=== PATIENT | male | born 1960 | race American Indian/Alaskan Native ===

== ENCOUNTER 2017-02-08 13:29 | Emergency (ER) | payer SELFPAY ==
--- NOTE | 2017-02-08 15:01 | Emergency Department Report ---
Entered by VIRIDIANA DHALIWAL, acting as scribe for DENISE ELLIOTT NP. Chief Complaint: Extremity Injury, Lower Stated Complaint: KNEE/ANKLE PAIN Time Seen by Provider: 02/08/17 14:51 - HPI History of Present Illness: 56-year-old male is non-toxic, non ill appearing, in no acute distress with c/o bilateral legs swelling and pain for 9 years, which hasn't decreased. Patient states his legs feel heavy. Aggravated with sitting during work and walking, but mildly alleviated with laying down. He denies calf pain, injury, abdominal pain, nausea, vomiting, chest pain, and SOB. 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 Notes that his last trip was today. Patient denies Hx of heart problems. Reports he was diagnosed with poor circulation 9 years when seen by a physician for similar complaint. - ROS Review of Systems: Reports bilateral leg swelling and pain. Denies chest pain and SOB. Denies abdominal pain, nausea, and vomiting. Denies numbness and tingling - Exam Vital Signs: Vital Signs 02/08/17 14:42 Temperature 98.1 F Pulse Rate 61 Respiratory 17 Rate Blood Pressure 151/87 O2 Sat by Pulse 100 Oximetry Physical Exam: Constitutional: Non toxic appearing, NAD. Cardiovascular: Normal rate and rhythm with normal S1/S2 sounds. Respiratory: No respiratory distress. Lung sounds clear to auscultation bilaterally. Abdomen: Abdomen is non-distended, soft with no tenderness to palpation in all quadrants. Extremities: bilateral lower extremity swelling. Positive pulses. Normal ROM to extremities. No calf tenderness. Negative Angel's sign. Cool to touch. MSE screening note: Focused history and physical exam performed. Due to findings the following was ordered: CBC, BMP, pro-brain natriuretic peptide test, and UA will be ordered for patient. ED Disposition for MSE Condition: Stable This documentation as recorded by the scribe,VIRIDIANA DHALIWAL,accurately reflects the service I personally performed and the decisions made by me,DENISE ELLIOTT, [place].
[2017-02-08 15:10] LABS: Basophils % (Auto) 0.7 % (0.0-1.8); Hematocrit 39.3 % (35.5-45.6); Hemoglobin 12.9 gm/dl (11.8-15.2); Mean Corpuscular HGB Conc 33 % (32-34); Mean Corpuscular Hemoglobin 31 pg (28-32); Mean Corpuscular Volume 94 fl (84-94); Platelet Count 176 K/mm3 (140-440); Red Cell Distribution Width 12.7 % (13.2-15.2); White Blood Count 5.8 K/mm3 (4.5-11.0)
[2017-02-08 15:58] LABS: Anion Gap 19 mmol/L; BUN/Creatinine Ratio 11.11; Blood Urea Nitrogen 10 mg/dL (9-20); Calcium 8.9 mg/dL (8.4-10.2); Carbon Dioxide 24 mmol/L (22-30); Chloride 98.8 mmol/L (98-107); Glucose 88 mg/dL (75-100); Potassium 4.1 mmol/L (3.6-5.0); Sodium 138 mmol/L (137-145)
[2017-02-09] MEDS ORDERED: LASIX PO ONE (03:06)
--- NOTE | 2017-02-09 03:16 | Emergency Department Report ---
ED Extremity Problem HPI - General Chief complaint: Extremity Injury, Lower Stated complaint: KNEE/ANKLE PAIN Time Seen by Provider: 02/09/17 02:32 Source: patient Mode of arrival: Ambulatory Limitations: No Limitations - History of Present Illness Initial comments: 56 year old male with no significant past medical history presents to the hospital complaining of lower extremity edema. He has had intermittent leg edema since 2007. He went to a hospital was told he has "poor circulation". Since this time he has not seen a primary care doctor for further evaluation. 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 He states his legs feel heavy in discomfort is rated 5/10 in intensity. Denies isolated calf tenderness, chest pain, shortness of breath, or fever. Patient states that swelling improves intermittently with leg elevation. Severity scale (0 -10): 5 - Related Data Previous Rx's Medication Instructions Recorded Last Taken Type Furosemide [Lasix] 20 mg PO QDAY #7 tablet 02/09/17 Unknown Rx Potassium Chloride [K-Dur] 20 meq PO QDAY #7 tablet 02/09/17 Unknown Rx Allergies Allergy/AdvReac Type Severity Reaction Status Date / Time No Known Allergies Allergy Unverified 02/08/17 14:42 ED Review of Systems ROS: Stated complaint: KNEE/ANKLE PAIN Other details as noted in HPI Comment: All other systems reviewed and negative Other: Constitutional: No fevers chills Eyes: No eye pain visual changes ENT: No ear pain or throat pain Neck: Denies pain Respiratory: Denies cough wheezing shortness of breath Cardiovascular: Denies chest pain, palpitations, syncope GI: Denies abdominal pain, nausea, vomiting, diarrhea : Denies dysuria Musculoskeletal: Denies back pain Skin: Denies rash, lesions, erythema Neurologic: Denies headache, numbness, weakness Psychiatric: Denies suicidal ideation, hallucinations ED Past Medical Hx - Past Medical History Previous Medical History?: No - Surgical History Past Surgical History?: No - Social History Smoking Status: Smoker, Current Status Unknown Substance Use Type: Alcohol - Medications Home Medications: Home Medications Medication Instructions Recorded Confirmed Last Taken Type Furosemide [Lasix] 20 mg PO QDAY #7 tablet 02/09/17 Unknown Rx Potassium Chloride [K-Dur] 20 meq PO QDAY #7 tablet 02/09/17 Unknown Rx ED Physical Exam - General Limitations: No Limitations - Other Other exam information: General: No limitations, patient is alert in no acute distress Head exam: Atraumatic, normocephalic Eyes exam: Normal appearance ENT: Moist mucous membrane, normal oropharynx Neck exam: Normal inspection, full range of motion, no meningismus nontender Respiratory exam: Clear to auscultation bilateral, no wheezes, rales, crackles Cardiovascular: Normal rate and rhythm, normal heart sounds Abdomen: Soft, nondistended, and nontender, with normal bowel sounds, no rebound, or guarding Extremity: Full range of motion normal inspection, bilateral lower extremity edema 1+ mildly pitting from the knee to the foot. No Tenderness, no leg asymmetry, erythema or warmth Back: Normal Inspection, full range of motion, no tenderness Neurologic: Alert, oriented x3, cranial nerves intact, no motor or sensory deficit Psychiatric: normal affect, normal mood Skin: Warm, dry, intact ED Course Vital Signs 02/08/17 02/08/17 14:42 23:54 Temperature 98.1 F 98.1 F Pulse Rate 61 50 L Respiratory 17 18 Rate Blood Pressure 151/87 O2 Sat by Pulse 100 100 Oximetry - Reevaluation(s) Reevaluation #1: 02/09/17 03:16 Patient given Lasix 20 mg by mouth ED Medical Decision Making - Lab Data Result diagrams: 02/08/17 15:00 02/08/17 15:00 Lab Results 02/08/17 02/08/17 Range/Units 15:00 15:00 WBC 5.8 (4.5-11.0) K/mm3 RBC 4.20 (3.65-5.03) M/mm3 Hgb 12.9 (11.8-15.2) gm/dl Hct 39.3 (35.5-45.6) % MCV 94 (84-94) fl MCH 31 (28-32) pg MCHC 33 (32-34) % RDW 12.7 L (13.2-15.2) % Plt Count 176 (140-440) K/mm3 Lymph % (Auto) 26.7 (13.4-35.0) % [place] % (Auto) 6.0 (0.0-7.3) % Eos % (Auto) 6.0 H (0.0-4.3) % Baso % (Auto) 0.7 (0.0-1.8) % Lymph # 1.6 (1.2-5.4) K/mm3 [place] # 0.4 (0.0-0.8) K/mm3 Eos # 0.4 (0.0-0.4) K/mm3 Baso # 0.0 (0.0-0.1) K/mm3 Seg Neutrophils % 60.6 (40.0-70.0) % Seg Neutrophils # 3.5 (1.8-7.7) K/mm3 Sodium 138 (137-145) mmol/L Potassium 4.1 (3.6-5.0) mmol/L Chloride 98.8 (98-107) mmol/L Carbon Dioxide 24 (22-30) mmol/L Anion Gap 19 mmol/L BUN 10 (9-20) mg/dL Creatinine 0.9 (0.8-1.5) mg/dL Estimated GFR > 60 ml/min BUN/Creatinine Ratio 11.11 % Glucose 88 (75-100) mg/dL Calcium 8.9 (8.4-10.2) mg/dL NT-Pro-B Natriuret Pep 25.08 (0-900) pg/mL - Medical Decision Making Pt has chronic leg edema that is gradually worsening. Patient has not followed up with a PMD for this complaint. No sheet medical condition identified this time. Outpatient Doppler will be ordered to rule out DVT but I have low suspicion this is a chronic complaint, legs are symmetrical, patient is a have calf tenderness. 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 Lasix 1 week with potassium will be provided. Patient also has mildly elevated blood pressure that improved spontaneously in the ed without treatment - Differential Diagnosis lymphedema, hypoalbuminemia, renal failure, CHF Critical Care Time: No Critical care attestation.: If time is entered above; I have spent that time in minutes in the direct care of this critically ill patient, excluding procedure time. ED Disposition Clinical Impression: Bilateral leg edema Disposition: DC-01 TO HOME OR SELFCARE Is pt being admited?: No Does the pt Need Aspirin: No Condition: Stable Instructions: Leg Edema (ED) Additional Instructions: Take the medication as prescribed. Note this is a water pill and will cause you to urinate more frequently. This can cause dehydration, renal failure, and electrolyte abnormalities including low potassium. Take the potassium tablet daily while taking the water pill. It is very important that you follow up with a primary care doctor for further workup and evaluation of your ongoing leg symptoms. Vascular/ultrasound has been ordered to evaluate for blood clot. A follow-up later today for this study as instructed. Keep your legs elevated to reduce swelling Prescriptions: Furosemide [Lasix] 20 mg PO QDAY #7 tablet Potassium Chloride [K-Dur] 20 meq PO QDAY #7 tablet Referrals: [facility] [Provider Group] - 3-5 Days (clinic) [facility] [Outside] - 3-5 Days (clinic) AMY CARDOZA MD [Staff Physician] - 3-5 Days (Primary care doctor) Time of Disposition: 03:49
[2017-02-09 03:51] VITALS: BP 131/56
== END 2017-02-09 04:20 | disposition home or self-care (01) ==
LOC: ED 13:29
DX: R60.0 Localized edema (principal)
CPT/HCPCS: 36415; 80048; 83880; 85025; 99283